=== PATIENT | male | born 1980 | race Caucasian/White ===

== ENCOUNTER 2023-09-03 09:30 | Outpatient (CLI) | payer BC ==
[2023-09-03 10:56] LABS: #Basophils 0.1 10x3/uL (0.0-0.2); #Eosinphils 0.1 10x3/uL (0.0-0.5); #Monocytes 0.4 10x3/uL (0.0-1.1); #Neutrophils 2.5 10x3/uL (1.5-8.4); %Eosinophils 2.7 % (0.0-6.0); %Lymphocytes 42.4 % (18.0-47.0); %Monocytes 6.7 % (0.0-10.0); Hematocrit 48.6 % (38.8-50.0); Hemoglobin 16.4 g/dL (13.5-17.5); Mean Corpuscular HGB CONC 33.7 g/dL (32.0-36.0); Mean Corpuscular Hemoglobin 31.5 pg (27.0-33.0); Mean Corpuscular Volume 93.5 fl (81.2-95.1); Mean Platelet Volume 10.2 fl (7.4-10.4); Platelet Count 219 10x3/uL (150-450); RBC Distribution Width 11.6 % (11.5-14.5); White Blood Cell (WBC) Count 5.2 10x3/uL (3.5-10.5)
[2023-09-03 11:17] LABS: Anion Gap 13 mmol/L (10-20); BUN (Urea Nitrogen) 11 mg/dL (8.9-20.6); Calc. Creatinine Clearance 0 mL/min (70-130); Calcium 9.6 mg/dL (7.8-10.44); Carbon Dioxide 27 mmol/L (22-29); Chloride 103 mmol/L (98-107); Estimated GFR 99; Glucose 87 mg/dL (70-105); Potassium 4.4 mmol/L (3.5-5.1); Sodium 139 mmol/L (136-145)
== END 2023-09-03 09:31 | disposition home or self-care (01) ==
LOC: LABBT 09:30
PROVIDERS: ATTEND Surgery
DX: Z01.818 Encounter for other preprocedural examination (principal); K40.20 Bilateral inguinal hernia, without obstruction or gangrene, not specified as recurrent
CPT/HCPCS: 80048; 85025; 93005; 93010